=== PATIENT | male | born 1945 | race Caucasian/White ===

== ENCOUNTER 2018-01-31 06:58 | Observation (INO) | payer MEDICARE, OTHER, SELFPAY ==
[2018-01-17 15:25] VITALS: BP 133/75; PULSE 60; RESP 17; TEMP 36.9; O2SAT 97; BMI 34.7
--- NOTE | 2018-01-17 15:45 | SDCEKG_ITS ---
Test Reason : Blood Pressure : / mmHG Vent. Rate : 054 BPM Atrial Rate : 054 BPM P-R Int : 146 ms QRS Dur : 092 ms QT Int : 430 ms P-R-T Axes : 036 -29 005 degrees QTc Int : 407 ms Sinus bradycardia Leftward axis Poor R wave progression Confirmed by LAYNE KIMBROUGH, GIO ([id number]), online content editor ANGELIC DAMON ([id number] on 01/18/2018 10:33:04 AM Referred By: Ethan Zhang Confirmed By:GIO TILLMAN MD
[2018-01-17 16:15] LABS: Absolute Lymphocyte Count 1.55 X10^3/ul (0.83-4.51); Absolute Neutrophil Count 7.4 X10^3/uL (2.0-7.7); Basophil# 0.02 X10^3/uL; Basophil% 0.2 % (0-1); Eosinophil# 0.31 X10^3/uL; Hematocrit 44.6 % (40-54); Hemoglobin 14.9 g/dl (13.0-16.5); Lymphocyte # 1.55 X10^3/ul (4.0); Lymphocyte % 15.1 % (19-41); Mean Corp Hgb Conc 33.4 g/gl (32-36); Mean Corpuscular Hgb 31.1 pg (27.0-32.0); Mean Corpuscular Volume 93.1 fL (80-94); Monocyte# 0.87 X10^3/uL; Monocyte% 8.5 % (0-10); Neutrophil # 7.41 X10^3/uL (2.7-7.7); Neutrophil % 72.4 % (47-70); POSITIVE COUNT NO; POSITIVE DIFFERENTIAL NO; POSITIVE MORPHOLOGY NO; Platelet Count 184 K/mm3 (150-450); RBC Distribution Width CV 13.4 % (11.6-14.6); RBC Distribution Width SD 44.4 fl (35.1-43.9); Red Blood Count 4.79 M/mm3 (4.6-6.2); White Blood Count 10.2 K/mm3 (4.4-11.0)
[2018-01-17 16:33] LABS: Anion Gap 8 (5-15); BUN 29 mg/dL (7-18); Chloride 107 mmol/L (98-107); Creatinine, Serum 1.21 mg/dL (0.70-1.30); EST Glomerular Filtration Rate 62 mL/min (>60); Est Glom Filt Rate - Afr Amer 76 mL/min (>60); Estimated Creatinine Clearance 43.76 ml/min; Glucose 88 mg/dL (74-106); Potassium 4.5 mmol/L (3.5-5.1); Sodium Level 141 mmol/L (136-145)
--- NOTE | 2018-01-17 21:34 | HP.PCM_ITS ---
History and Physical DATE OF SURGERY: 01/31/2018 SCHEDULED PROCEDURE: Right Total Knee Arthroplasty HISTORY OF PRESENT ILLNESS: This is a 72-year-old male whose been having ongoing pain in the right knee for approximately 3-4 years. Patient denies any trauma or injury. He states his pain can reach as high as a 7/10. His pain normally is around a 3/10 on average. He does feel over the past 1 year the pain has gradually progressed and is getting worse. Patient states his pain is intermittent, aching. He complains of stiffness in the knee. He has increased pain going up and down stairs and walking. Pain is slightly reduced with rest. Patient states he has difficult time with activities of daily living including getting dressed and putting on his pants, running, jogging, walking longer distances. Patient feels unsafe getting up on a ladder due to his pain. Patient has tried conservative measures consisting of rest, ice, elevation, and corticosteroid injection with minimal relief. Patient has tried heat with no relief in symptoms. Patient has been through formal physical therapy and home exercises with minimal relief. Patient has also undergone stem cell treatment. Patient has had a previous right knee arthroscopy with stem cell injection in June 2017 in [place]. Patient has tried oral medications consisting of Tylenol, Celebrex which has been temporarily helpful. Patient denies any recent chest pain, shortness of breath, fevers chills, or recent infections. Patient has medical history pertinent for asthma. After failing conservative measures and discussing all treatment options with Dr. Ethan Zhang, the patient would like to proceed with a right total knee arthroplasty. REVIEW OF SYSTEMS: ROS: Const: Denies anorexia, change in appetite, fever, hard of hearing, vision problems and weight change. CV: Denies chest pain, heart murmur, irregular heartbeat and peripheral vascular disease. Resp: Reports asthma and wheezing, but denies cough, pneumonia, sleep apnea, SOB and tuberculosis. GI: Reports heartburn, but denies constipation, diarrhea, difficulty swallowing, nausea, bloody stools and vomiting. : Urinary: denies incontinence. Musculo: Reports weakness, but denies leg swelling, limp and trouble walking. Skin: Denies Raynaud's, history of shingles and tattoo. Neuro: Denies ambulatory dysfunction, dizziness, numbness/tingling and tremor. Psych: Denies anxiety, depression, insomnia, mental illness and stress. Anuj/Lymph: Denies anemia, bleeding/bruising tendency and past transfusion. Reviewed, no changes. PAST MEDICAL HISTORY: Advance Care Plan: Other Directive, POA Effective Date: 07/30/2014 Other Directive, LIVING WILL Effective Date: 07/30/2014 PMH: Medical Problems: Arthritis, Asthma, Kidney Stones Cancer - SKIN Accidents: None Surgical Hx: LT Rotator Cuff - (2003) Scalp - (1979) REMOVED MELONOMA Knee Replacement LT - (08/06/2014) [facility] LT THR - (07/10/2015) [facility] @ [facility] RT Knee Arthroscopy W/Stem Cell Injection - (06/2017) [place] Anesthesia Complications: Nausea Assistive Devices: Glasses Reviewed and updated. SOCIAL HISTORY: SH: Marital: .Occupation: Retired.Work Status: Retired.Hand Dominance: Right- handed. Personal Habits: Cigarette Use: Never Smoked Cigarettes.Alcohol: Denies use.Drug Use: Denies Use.Enjoy Exercising: Daily. Reviewed, no changes. VITALS: Ht: 63.5 Wt: 198lb Wt k.813 BMI: 34.5 BP: 108/60 Pulse: 80 Resp: 16 T: 97.7 T: 36.5C ALLERGIES: Theodur Codeine - elevates prostate levels, Per Dr Calixto no Tylenol #3 MEDICATIONS: Centrum Silver 1 tab PO daily, Avodart 0.5 mg 1 by mouth every day, Aspirin 81 mg daily, Alfuzosin HCL ER 10 mg 1 tab PO daily, Tylenol Extra Strength 500 mg as needed, Magnesium 300 mg one PO daily, Potassium 75 mg one PO daily, [place] 3 1000 mg 1po qday, Celebrex 200 mg 1po bid, Glucosamine Chondroitin 1500 Complex Maximum Strength 1500 Com 1po qday PRE-OP EXAM: General appearance:NORMAL Other: Eyes: Conjunctivae and lids: NORMAL Pupils: ERR Ears, Nose, Mouth, and Throat: NORMAL Other: Inspection of lips, teeth and gums: NORMAL Other: Neck: Examination of neck: no masses noted. Respiratory: Assessment of respiratory effort: NORMAL Other: Auscultation of lungs: clear to auscultation no wheezes, rhonchi or rales. Cardiovascular: Auscultation of heart: regular rate and rhythm, no murmurs, gallops or rubs. Exam of carotid arteries: NORMAL Other: Gastrointestinal: Exam of abdomen: soft, nontender, nondistended bowel sounds present. PHYSICAL EXAMINATION: Patient walks with an antalgic gait. Right knee is cool to touch without erythema. Patient does have trace effusion. Patient has tenderness to palpation along the medial aspect of the right knee. There is minimal pain along the lateral knee. Range of motion: 0 of extension to 130 of flexion with crepitus. Sensation intact to light touch. Neurovascularly intact. IMAGING STUDIES: Previous x-rays of the right knee reveal severe medial and patellofemoral osteoarthritis as well as moderate lateral osteoarthritis. IMPRESSION: 1. Severe right knee osteoarthritis 2. Asthma 3. History of kidney stones 4. History of skin cancer: Melanoma on the scalp 1980 PLAN: Dr. Ethan Zhang did discuss and review with the patient all treatment options including surgical versus nonsurgical options. Patient does wish to proceed with the above-stated procedure. Potential risks, benefits, and complications of the procedure were discussed in detail including but not limited to , infection, nerve and blood vessel damage, persistent pain, numbness, tingling, paresthesias, blood clot, pulmonary embolism, and requirement for possible further surgery. The patient expressed full understanding and has no further questions for the doctor. Patient does agree to proceed with the above-stated procedure and has signed the surgery consent form. Patient will undergo preoperative lab work and EKG. This dictation was created using voice recognition software. Phonetic and/or grammatical errors may exist.. ___ I have re-examined the patient. There are no clinical changes since date of exam. ___ See progress notes for changes. ___ Dictated on admission Date: Time: Signature:
--- NOTE | 2018-01-27 10:50 | CASEMGMT ---
Call placed to patient's home phone, spoke with as patient was unavailable to talk. Per , patient plans to return home with assistance from and daughter. Has outpatient physical therapy set up at [facility], and daughter will assist with transportation. Patient has a walker, grab bars. Does not have a shower seat but has a small bench built into shower that patient can sit on. There is a bedroom and bathroom on the 1st level of the home. There are 1-2 steps into the home. Informed that RN-CM will likely follow up after surgery to ensure no further discharge needs. Marguerite Cade LPN Clinical Support
[2018-01-31] VITALS (10 sets, daily range): BP systolic 112–173; BP diastolic 62–90; PULSE 52–61; RESP 14–18; TEMP 35.9–37; O2SAT 95–100; BMI 34.7; BMI 32.3
--- NOTE | 2018-01-31 | KNEE_PTH ---
PATIENT: DEBBIE DENG LOC: MS3 U#:[id number] AGE/SX: 72/M ROOM: [facility]306 RE01/31/[address]: Dr. Ethan Zhang DO : 1945 BED: 1 DIS: 02/01/2018 SPEC #: [id number] RECD: 01/31/18 14:37 STATUS: ANKIT REQ #: [id number] BROWN: 01/31/18 00:[address]: Ethan Zhang DEPT: SURGICAL PATHOLOGY RECD BY: Rosales Ugalde ENTERED: 01/31/18 14:37 SP TYPE: TOTAL KNEE OTHR DR: Dr. Loki Oneal MD Tissues: Knee, NOS Procedures: Decalcification bone/plaque Surgery Specimen Level IV HEADER OPERATION: Total knee replacement PRE-OP DIAGNOSIS: Osteoarthritis, right knee TISSUE SUBMITTED: Bone and soft tissue MICROSCOPIC DIAGNOSIS Bone and soft tissue fragment, total knee resection: Severe degenerative joint disease. AM:katrin 02/03/18 MICROSCOPIC DESCRIPTION Slides are reviewed. GROSS DESCRIPTION Received is one container designated bone and soft tissue knee. The specimen consists of multiple fragments of anderson-yellow bone measuring in aggregate 9 x 10 x 3.5 cm. Also in the specimen container are multiple fragments of yellow-white soft tissue measuring in aggregate 9 x 3 cm. A number of bony fragments contain articular surfaces consistent with tibial plateau and femoral condyle and displaying prominent osteophyte formation, eburnation, and bone erosion. Assembly Supervisor sections are submitted in two cassettes as follows: 1 - soft tissue, 2 - bone after decalcification. / SJ:sp 01/31/18 TC: 5 CPT: 98779, 43928
[2018-01-31] MEDS: Celecoxib 200 MG Capsule 400 MG PO (07:54)
[2018-01-31] MEDS: Acetaminophen 500 MG Tablet 1000 MG PO (07:54)
[2018-01-31] MEDS: Cefazolin 2 GM in 0.9% Normal Saline 100 ML IV (08:50)
--- NOTE | 2018-01-31 10:17 | PCM.IMDPSTOP ---
Immediate Post-Op Note Date of Procedure: 01/31/18 Primary Surgeon/Physician: Ethan Zhang knife machine operator: Edgar Daniel Pre-Operative Diagnosis: OA right knee Post-Operative Diagnosis: same Surgery/Procedure Performed:: Right TKR Description of Surgical Findings:: see note Estimated Blood Loss: 50 cc Specimen's removed: bone Type of Anesthesia:: Spinal ASA Class: ASA2 Mod Systematic Disease - Admit VTE Documentation VTE Present on Admission: No VTE Mechan Device Prophylaxis: SCD's, Thigh High ANNETTE Hose VTE Pharm Prophylaxis ordered?: Yes
--- NOTE | 2018-01-31 10:19 | PCM.OP.BLANK ---
Operative Report Date of Procedure: 01/31/18 Primary Surgeon/Physician: Ethan Zhang bleach mixer: Edgar Daniel PA-C bleach mixer: Pre-Operative Diagnosis: OA right knee Post-Operative Diagnosis: same Surgery/Procedure Performed: Right TKR Estimated Blood Loss: 50 cc Specimen's Removed: bone Type of Anesthesia: spinal ASA Class: 2 Implants: [Shanna Triathlon size 4 femur, size 4 tibia, size 29 patella, 11 mm polyethylene tibial spacer (all components cemented) ] Indications: Patient has severe end-stage osteoarthritis diagnosed via x-rays in the knee. They have failed all forms of conservative measures including activity modification, injections, anti-inflammatories, use of assistive device. The patient has pain that affects on a daily basis and prevents him from doing things that they enjoyed. They have elected to undergo the above procedure. The risks of the procedure were discussed at length and their questions were answered. Procedure Description: The patient was greeted in the preoperative area. The [right ] knee was then marked with a surgical marker. Patient was then taken to or Suite 5. They were administered a dose of antibiotics as well as tranexamic acid. Once adequate anesthesia was obtained and airway was secured to placed in supine position on the operating room table. A well-padded tourniquet was placed on the affected extremity. Leg was then prepped and draped in the usual sterile fashion from the knee down. Ioban was used on the skin. Surgical timeout was then performed and confirmed with all present. Six-inch Esmarch was used to examine the limb and tourniquet was then inflated to 250 mmHg. A longitudinal incision was then planned and carried out in the anterior aspect of the knee. The dissection was then carried the length of the incision the extensor mechanism was identified. Standard medial parapatellar arthrotomy was then performed revealing severe eburnation of bone and periarticular osteophytes. There is complete loss of cartilage especially in the medial compartment with varus alignment. Anterior fat pad was removed for visualization purposes and the anterior medial aspect of the tibia was skeletonized for exposure to the knee. The knee was then flexed the patella was inverted. Opening reamer was then used in the femur approximately 1 cm anterior to the attachment of the PCL. The intramedullary valgus wand was then placed in the femur set at 5? of valgus. The distal femoral cutting jig was then applied to the femur with anticipated resection of approximately 8 mm. This was then made with a oscillating saw. The sizing guide was then placed referencing off the posterior condyles and also reference off the epicondylar axis. This was measured and the appropriate size 4-in-1 cutting jig was then applied to the distal femur. Anterior posterior cuts were made followed by the anterior and posterior chamfer cuts. These bony pieces and fragments were removed and placed on the back table. Posterior retractor was then utilized and the tibia was subluxed anteriorly. Extramedullary tibial alignment jig was then applied to the tibia referencing off the medial one third of the tibial tubercle the anterior tibial spine the middle aspect of the tibiotalar joint. Also reference off patient's [place] slope. The tibial cutting jig was then pinned with anticipated resection of 2 mm off of the deficient medial tibial condyle. This cut was made with the oscillating saw. Once this was complete a laminar mink rancher was utilized in both medial lateral meniscus were removed and a posterior capsular osteophytes were also removed. Posterior capsule release was performed in the posterior capsule as well as the geniculate arteries are treated with the aqua [place]. The tibia was incised and the appropriate sized tibial tray was then pinned. The femoral box cutting jig was then applied to the femur and the box was prepared removing a portion of the intercondylar notch. The femoral trial was then placed and the knee was trialed. Full flexion-extension were easily achieved. The knee seemed to balance quite nicely. Any remaining osteophytes were removed at this time. Once this was complete the patella was everted and the Shayla patella reaming device was then utilized the patella was then placed in the appropriate jig and reamer was then used to remove approximately 9 mm of the undersurface of the patella. A soft tissue remaining was in the way was removed and patella trial was then placed listed maintain excellent tracking using the no thumbs technique. The tibial tray at this point was punched to accommodate the fins of the final implant. At this point cement was mixed on the back table. The trial components were removed and the knee was copiously irrigated. Did use a cocktail of injection for postoperative pain control. The final components were then cemented in the standard fashion and excess cement was removed with cement removal tools and patellar clamp is placed in the patella. As the cement had cured in full extension tourniquet was deflated and hemostasis was perfect with Bovie cautery as well as the aqua Manus. Needle is once again trialed with different size polyethylenes to ensure the full range of motion was achieved as well as excellent balancing ligamentously was achieved. At this point the knee was copiously irrigated. Final implant was then inserted locking mechanism was engaged and confirmed to be locked. The arthrotomy was then closed with #1 Vicryl aggravate type fashion interrupted. Subcutaneous tissue was closed with 0 Vicryl and surgical ana were placed in the skin. A occlusive silver impregnated dressing was then applied followed by well-padded sterile dressing secured with an George wrap. The patient was taken to the PACU in stable condition. No complications known at this time. Postoperatively we will maintain standard total knee postoperative protocol. The use of the physician sales assistant was integral during this procedure. They assisted with positioning placement of the tourniquet retracting closure and placement of the dressing. The procedure would have been much more difficult without their expertise and assistance
--- NOTE | 2018-01-31 10:23 | OP.PCM_ITS ---
Operative Report Date of Procedure: 01/31/18 Primary Surgeon/Physician: Ethan Zhang rear load truck driver: Edgar Daniel PA-C rear load truck driver: Pre-Operative Diagnosis: OA right knee Post-Operative Diagnosis: same Surgery/Procedure Performed: Right TKR Estimated Blood Loss: 50 cc Specimen's Removed: bone Type of Anesthesia: spinal ASA Class: 2 Implants: [Shanna Triathlon size 4 femur, size 4 tibia, size 29 patella, 11 mm polyethylene tibial spacer (all components cemented) ] Indications: Patient has severe end-stage osteoarthritis diagnosed via x-rays in the knee. They have failed all forms of conservative measures including activity modification, injections, anti-inflammatories, use of assistive device. The patient has pain that affects on a daily basis and prevents him from doing things that they enjoyed. They have elected to undergo the above procedure. The risks of the procedure were discussed at length and their questions were answered. Procedure Description: The patient was greeted in the preoperative area. The [right ] knee was then marked with a surgical marker. Patient was then taken to or Suite 5. They were administered a dose of antibiotics as well as tranexamic acid. Once adequate anesthesia was obtained and airway was secured to placed in supine position on the operating room table. A well-padded tourniquet was placed on the affected extremity. Leg was then prepped and draped in the usual sterile fashion from the knee down. Ioban was used on the skin. Surgical timeout was then performed and confirmed with all present. Six-inch Esmarch was used to examine the limb and tourniquet was then inflated to 250 mmHg. A longitudinal incision was then planned and carried out in the anterior aspect of the knee. The dissection was then carried the length of the incision the extensor mechanism was identified. Standard medial parapatellar arthrotomy was then performed revealing severe eburnation of bone and periarticular osteophytes. There is complete loss of cartilage especially in the medial compartment with varus alignment. Anterior fat pad was removed for visualization purposes and the anterior medial aspect of the tibia was skeletonized for exposure to the knee. The knee was then flexed the patella was inverted. Opening reamer was then used in the femur approximately 1 cm anterior to the attachment of the PCL. The intramedullary valgus wand was then placed in the femur set at 5? of valgus. The distal femoral cutting jig was then applied to the femur with anticipated resection of approximately 8 mm. This was then made with a oscillating saw. The sizing guide was then placed referencing off the posterior condyles and also reference off the epicondylar axis. This was measured and the appropriate size 4-in-1 cutting jig was then applied to the distal femur. Anterior posterior cuts were made followed by the anterior and posterior chamfer cuts. These bony pieces and fragments were removed and placed on the back table. Posterior retractor was then utilized and the tibia was subluxed anteriorly. Extramedullary tibial alignment jig was then applied to the tibia referencing off the medial one third of the tibial tubercle the anterior tibial spine the middle aspect of the tibiotalar joint. Also reference off patient's [place] slope. The tibial cutting jig was then pinned with anticipated resection of 2 mm off of the deficient medial tibial condyle. This cut was made with the oscillating saw. Once this was complete a laminar service person was utilized in both medial lateral meniscus were removed and a posterior capsular osteophytes were also removed. Posterior capsule release was performed in the posterior capsule as well as the geniculate arteries are treated with the aqua [place]. The tibia was incised and the appropriate sized tibial tray was then pinned. The femoral box cutting jig was then applied to the femur and the box was prepared removing a portion of the intercondylar notch. The femoral trial was then placed and the knee was trialed. Full flexion-extension were easily achieved. The knee seemed to balance quite nicely. Any remaining osteophytes were removed at this time. Once this was complete the patella was everted and the Shayla patella reaming device was then utilized the patella was then placed in the appropriate jig and reamer was then used to remove approximately 9 mm of the undersurface of the patella. A soft tissue remaining was in the way was removed and patella trial was then placed listed maintain excellent tracking using the no thumbs technique. The tibial tray at this point was punched to accommodate the fins of the final implant. At this point cement was mixed on the back table. The trial components were removed and the knee was copiously irrigated. Did use a cocktail of injection for postoperative pain control. The final components were then cemented in the standard fashion and excess cement was removed with cement removal tools and patellar clamp is placed in the patella. As the cement had cured in full extension tourniquet was deflated and hemostasis was perfect with Bovie cautery as well as the aqua Manus. Needle is once again trialed with different size polyethylenes to ensure the full range of motion was achieved as well as excellent balancing ligamentously was achieved. At this point the knee was copiously irrigated. Final implant was then inserted locking mechanism was engaged and confirmed to be locked. The arthrotomy was then closed with #1 Vicryl aggravate type fashion interrupted. Subcutaneous tissue was closed with 0 Vicryl and surgical ana were placed in the skin. A occlusive silver impregnated dressing was then applied followed by well-padded sterile dressing secured with an George wrap. The patient was taken to the PACU in stable condition. No complications known at this time. Postoperatively we will maintain standard total knee postoperative protocol. The use of the physician licensed physical therapy assistant was integral during this procedure. They assisted with positioning placement of the tourniquet retracting closure and placement of the dressing. The procedure would have been much more difficult without their expertise and assistance
[2018-01-31 11:38] LABS: Hematocrit 45.3 % (40-54); Mean Corp Hgb Conc 33.1 g/gl (32-36); Mean Corpuscular Hgb 31.4 pg (27.0-32.0); Mean Corpuscular Volume 94.8 fL (80-94); Mean Platelet Vol. 10.8 fl (6.2-12.0); Platelet Count 193 K/mm3 (150-450); RBC Distribution Width CV 13.5 % (11.6-14.6); RBC Distribution Width SD 46.6 fl (35.1-43.9); Red Blood Count 4.78 M/mm3 (4.6-6.2); White Blood Count 12.7 K/mm3 (4.4-11.0)
[2018-01-31 11:39] LABS: Scan Indicated on CBC? Y/N NO
[2018-01-31] MEDS: Multivitamins,Ther W-Minerals Tablet 1 TABLET PO (14:06)
[2018-01-31] MEDS: Celecoxib 100 MG Capsule PO ×2 (14:06→21:08)
[2018-01-31] MEDS: Finasteride 5 MG Tablet PO (14:07)
[2018-01-31] MEDS: Cefazolin 1 GM/50 ML BAG IV (16:25)
[2018-01-31] MEDS: Tamsulosin HCl 0.4 MG Capsule PO (16:26)
[2018-01-31] MEDS: 0.9% Normal Saline 1,000 ML 125 ML IV (16:29)
[2018-01-31] MEDS: traMADol 50 MG Tablet PO (19:18)
[2018-01-31] MEDS: Aspirin 325 MG Tablet PO (21:08)
[2018-01-31] MEDS: Senna/Docusate Sodium 1 Tablet 2 TABLET PO (21:08)
[2018-01-31] MEDS: DiphenhydrAMINE 25 MG Capsule PO (22:19)
[2018-01-31] MEDS: Acetaminophen 500 MG Tablet PO (22:19)
[2018-01-31] MEDS: 0.9% NaCl Peripheral Flush Adult/Peds IV (22:22)
[2018-02-01] MEDS: Cefazolin 1 GM/50 ML BAG IV (00:30)
[2018-02-01] MEDS: 0.9% NaCl Peripheral Flush Adult/Peds IV ×3 (00:31→12:38)
[2018-02-01 00:34] VITALS: BP 123/68; PULSE 59; RESP 16; TEMP 36.3; O2SAT 94
[2018-02-01] MEDS: traMADol 50 MG Tablet PO (05:39)
[2018-02-01 05:52] LABS: Hematocrit 43.3 % (40-54); Hemoglobin 14.6 g/dl (13.0-16.5); Mean Corp Hgb Conc 33.7 g/gl (32-36); Mean Corpuscular Hgb 31.2 pg (27.0-32.0); Mean Corpuscular Volume 92.5 fL (80-94); Platelet Count 188 K/mm3 (150-450); RBC Distribution Width CV 13.2 % (11.6-14.6); RBC Distribution Width SD 43.7 fl (35.1-43.9); Red Blood Count 4.68 M/mm3 (4.6-6.2); White Blood Count 11.9 K/mm3 (4.4-11.0)
[2018-02-01 05:54] LABS: Scan Indicated on CBC? Y/N NO
[2018-02-01 06:00] VITALS: BP 142/69; PULSE 59; RESP 16; TEMP 35.9; O2SAT 95
[2018-02-01 06:04] LABS: Anion Gap 10 (5-15); BUN 30 mg/dL (7-18); BUN/Creat Ratio 25.2 RATIO (10-20); Calcium,Total 8.5 mg/dL (8.5-10.1); Chloride 106 mmol/L (98-107); Creatinine, Serum 1.19 mg/dL (0.70-1.30); EST Glomerular Filtration Rate 64 mL/min (>60); Est Glom Filt Rate - Afr Amer 77 mL/min (>60); Estimated Creatinine Clearance 49.89 ml/min; Glucose 98 mg/dL (74-106); Potassium 4.1 mmol/L (3.5-5.1); Sodium Level 139 mmol/L (136-145)
[2018-02-01] MEDS: Ketorolac 15 MG/ML Vial IV ×2 (06:38→12:37)
--- NOTE | 2018-02-01 07:52 | PCM.PN.ORT ---
Subjective: Patient sitting at bedside eating breakfast. Pain well managed. No other complaints. Denies chest pain, shortness breath, calf pain, nausea vomiting. Ready for discharge home. Objective: Dressings clean dry intact. Negative signs symptoms of DVT. Vital signs labs within normal limits. Patient is afebrile neurovascular is otherwise intact. - Physical Exam General: Alert, Oriented x3, Cooperative HEENT: PERRLA Oral: Moist Mucosa Neurological: Cranial nerves II-XII grossly intact Psych/Mental Status: Normal Affect, Alert and oriented to time, place, person, mood and affect Vital Signs Temp Pulse Resp BP Pulse Ox 96.7 F L 59 L 16 142/69 H 95 02/01/18 06:00 02/01/18 06:00 02/01/18 06:00 02/01/18 06:00 02/01/18 06:00 Oxygen Delivery Method Room Air Weight: 90.718 kg Body Mass Index (BMI) 32.3 Intake and Output for Last 24 Hours 01/30/18 01/31/18 02/01/18 23:59 23:59 23:59 Intake Total 2016 325 / 325 Balance 2016 325 / 325 Laboratory Tests Past 24 Hrs 01/31/18 02/01/18 02/01/18 11:34 05:38 05:38 WBC 12.7 H 11.9 H RBC 4.78 4.68 Hgb 15.0 14.6 Hct 45.3 43.3 MCV 94.8 H 92.5 MCH 31.4 31.2 MCHC 33.1 33.7 RDW 13.5 13.2 RDW Differential 46.6 H 43.7 Plt Count 193 188 MPV 10.8 11.0 Sodium 139 Potassium 4.1 Chloride 106 Carbon Dioxide 23.0 Anion Gap 10 BUN 30 H Creatinine 1.19 Estim Creat Clear Calc 49.89 Est GFR (MDRD) Af Amer 77 Est GFR (MDRD) Non-Af 64 BUN/Creatinine Ratio 25.2 H Glucose 98 Calcium 8.5 Medical Necessity - Tobacco Use Smoking Status: Never smoker Assessment/Plan All Active Problems SOB (shortness of breath) (Acute) Rib fractures (Acute) Status post right total knee Plan 1. Continue all pain medications as prescribed 2. Continue physical therapy today weight-bear as tolerated with walker 3. Aspirin 3 and 25 mg 1 p.o. every 12 hours for postop DVT prophylaxis times 30 days 4. Encourage incentive spirometry 5. Follow-up as scheduled, see pink sheet 6. Discharge home today after p.m. therapy.
--- NOTE | 2018-02-01 08:01 | DCINST_ITS ---
Discharge Diet: No Restrictions Call your doctor if your incision/area has: Continuous Slow Oozing, Sudden Increased Bleeding, Increased Pain/ Swelling, Increased Redness, Foul Smelling Discharge Call your doctor if you observe: Fever of 101 or Higher, Coldness, Increased Pain - in extremity, Numbness or Tingling, Change in Color, Calf discomfort, Uncontrolled pain Change Dressing in (Days):: 0 - and daily as needed. Remove Dressing in (days):: 8 Cleanse incision/area with: Soap & Water Allergies/Adverse Reactions: Allergies theophylline anhydrous [From Wiliam-Dur] Allergy (Verified 01/31/18 07:31) Other oxycodone HCl [From Percocet] Adverse Reaction (Verified 01/31/18 07:31) Nausea Medications to take at Discharge Alfuzosin HCl [Alfuzosin HCl ER] 10 mg PO DAILY 07/30/14 Multivit-Min/FA/Lycopene/Lut [Centrum Silver Tablet] 1 each PO DAILY 07/30/14 Glucosam/Nish-Msm1/C/Thai/Bosw [Osteo Bi-Flex Caplet] 1 each PO DAILY 09/11/16 Krill/Keiser-3/Dha/Epa/Lipids [Krill Oil 300 mg Softgel] 1 each PO DAILY 09/11/16 Magnesium Oxide [Magnesium] 400 mg PO DAILY 09/11/16 Potassium 550 mg PO DAILY 09/11/16 Celecoxib [Celebrex] 100 mg PO BID 01/17/18 Dutasteride [Avodart] 5 mg PO DAILY 01/17/18 Acetaminophen [Tylenol] 1,000 mg PO Q8 #90 tab 02/01/18 Aspirin 325 mg PO BID #60 tab 02/01/18 traMADol [Ultram] 50 - 100 mg PO Q6H PRN PRN 7 Days #90 tab 02/01/18 The following prescriptions were given: traMADol [Ultram] 50 - 100 mg PO Q6H PRN PRN 7 Days #90 tab PRN Reason: Mod-Severe Pain (4-12/29) Acetaminophen [Tylenol] 1,000 mg PO Q8 #90 tab Aspirin 325 mg PO BID #60 tab Primary Care Physician: Loki Oneal MD [Primary Care Provider] - Test Results: Test results from this visit will be discussed in further detail at your follow- up appointment, if applicable. Please Follow Up With: Ethan Zhang, DO When: see pink sheet
[2018-02-01] MEDS: Aspirin 325 MG Tablet PO (09:56)
[2018-02-01] MEDS: traMADol 50 MG Tablet 100 MG PO (09:57)
[2018-02-01] MEDS: Finasteride 5 MG Tablet PO (09:58)
[2018-02-01] MEDS: Celecoxib 100 MG Capsule PO (09:58)
[2018-02-01] MEDS: Tamsulosin HCl 0.4 MG Capsule PO (09:58)
[2018-02-01] MEDS: Multivitamins,Ther W-Minerals Tablet 1 TABLET PO (09:58)
[2018-02-01] MEDS: Senna/Docusate Sodium 1 Tablet 2 TABLET PO (09:59)
[2018-02-01 10:33] VITALS: BP 168/86; PULSE 65; RESP 18; TEMP 36.7; O2SAT 98
--- NOTE | 2018-02-01 11:45 | CASEMGMT ---
VITO DONOVAN Face to Face with patient for initial transition planning/care coordination assessment. RN ZION introduced self and role at [facility]. Patient lying in bed, alert and oriented. Patient willing to participate in assessment and is able to answer all questions appropriately. Care providers, pharmacy, and demographics verified. Patient wishes to discharge home with outpatient therapy with [facility]. Patient states he has no further needs or concerns at this time. CM to follow for discharge planning needs that may arise. PCP: Jm Specialists: None Preferred Pharmacy: [facility] Insurance: [facility] Prescription Benefit: yes Living Will/HPOA: Yes, Rena Alonzo HPOA LNOK: Living Arrangements: Patient lives in 1 story home. Transportation: DME/HHC: Raised toilet seat, cane, tub bench, crutches, grab bars, walker Disposition Plan: Patient to discharge home with outpatient therapy, family support, and follow-up plans in place. Silvana MENDEZ, RN, CM
[2018-02-01] MEDS: Acetaminophen 500 MG Tablet 1000 MG PO (13:09)
== END 2018-02-01 15:13 | disposition home or self-care (01) ==
LOC: MS3 02-01 08:35 → ACINP 02-01 08:36
PROVIDERS: Admitting Provider Orthopaedic Surgery; Family Provider Family Medicine; PCP Family Medicine; Referring Provider Orthopaedic Surgery; Visit Provider Orthopaedic Surgery
PROC: (CPT 27447; principal; 2018-01-31 08:35)
DX: M17.11 Unilateral primary osteoarthritis, right knee (principal); M19.90 Unspecified osteoarthritis, unspecified site; J45.909 Unspecified asthma, uncomplicated; Z79.899 Other long term (current) drug therapy; Z79.82 Long term (current) use of aspirin; Z87.442 Personal history of urinary calculi; Z85.820 Personal history of malignant melanoma of skin; K21.9 Gastro-esophageal reflux disease without esophagitis
CPT/HCPCS: 27447; 64447; 36415; 80048; 85025; 85027; 87077; 87081; 88305; 88311; 93005; 96361; 96365; 96366; 96375; 96376; 97110; 97162; 97165; 97530; 99218; C1776; J7030; J7120; A4216; G0378; G0379; G8978; G8979; G8987; G8988

== ENCOUNTER → 2018-03-17 18:43 | Outpatient (CLI) | payer MEDICARE, OTHER, SELFPAY | PROVIDERS: Family Provider Family Medicine; PCP Family Medicine; Referring Provider Family Medicine; Visit Provider Family Medicine | DX: L02.425 Furuncle of right lower limb (principal) | CPT/HCPCS: 87070; 87077; 87186; 87205 ==

== ENCOUNTER → 2018-04-20 11:28 | Outpatient (CLI) | payer MEDICARE, OTHER, SELFPAY ==
[2018-01-31 12:26] VITALS: BMI 32.3
[2018-04-20 12:26] LABS: Hematocrit 46.2 % (40-54); Hemoglobin 15.2 g/dl (13.0-16.5); Mean Corp Hgb Conc 32.9 g/gl (32-36); Mean Corpuscular Hgb 30.5 pg (27.0-32.0); Mean Corpuscular Volume 92.8 fL (80-94); Mean Platelet Vol. 11.4 fl (6.2-12.0); Platelet Count 242 K/mm3 (150-450); RBC Distribution Width SD 46.1 fl (35.1-43.9); Red Blood Count 4.98 M/mm3 (4.6-6.2); White Blood Count 9.4 K/mm3 (4.4-11.0)
[2018-04-20 12:29] LABS: Scan Indicated on CBC? Y/N NO
[2018-04-20 12:52] LABS: Vitamin B12 713 pg/mL (211-911)
[2018-04-20 12:58] LABS: ALB/GLOB Ratio 1.1 RATIO (0.9-2.4); AST(SGOT) 20 U/L (15-37); Alanine Aminotransfer ALT/SGPT 22 U/L (16-61); Alkaline Phosphatase 87 U/L (45-117); Anion Gap 10 (5-15); BUN 21 mg/dL (7-18); BUN/Creat Ratio 20.4 RATIO (10-20); Calcium,Total 9.4 mg/dL (8.5-10.1); Chloride 107 mmol/L (98-107); Creatinine, Serum 1.03 mg/dL (0.70-1.30); EST Glomerular Filtration Rate 75 mL/min (>60); Est Glom Filt Rate - Afr Amer 91 mL/min (>60); Globulin 3.6 g/dL (2.2-4.2); Glucose 81 mg/dL (74-106); Potassium 4.3 mmol/L (3.5-5.1); Protein, Total 7.6 g/dL (6.4-8.2); Sodium Level 143 mmol/L (136-145); Thyroid Stim Hormone (TSH) 1.01 uIU/mL (0.358-3.74)
[2018-04-21 15:13] LABS: ANTINUCLEAR ANTIBODIES DIRECT Positive (Negative)
[2018-04-22 07:07] LABS: Ceruloplasmin 24.5 mg/dL (16.0-31.0)
[2018-04-22 11:07] LABS: Copper, Serum or Plasma 112 ug/dL (72-166)
== END ==
PROVIDERS: Family Provider Family Medicine; PCP Family Medicine; Referring Provider Psychiatry & Neurology Neurology; Visit Provider Psychiatry & Neurology Neurology
DX: R25.1 Tremor, unspecified (principal)
CPT/HCPCS: 36415; 80053; 82390; 82525; 82607; 84443; 85027; 86038

== ENCOUNTER → 2018-09-26 10:59 | Outpatient (CLI) | payer MEDICARE, OTHER, SELFPAY ==
[2018-01-31 12:26] VITALS: BMI 32.3
[2018-09-26 12:08] LABS: EXAGEN MAILED SPECIMEN
[2018-09-26 13:48] LABS: Absolute Lymphocyte Count 0.98 X10^3/ul (0.83-4.51); Absolute Neutrophil Count 7.7 X10^3/uL (2.0-7.7); Basophil# 0.02 X10^3/uL; Basophil% 0.2 % (0-1); Eosinophil# 0.47 X10^3/uL; Eosinophils% 4.7 % (0-5); Hematocrit 46.2 % (40-54); Hemoglobin 15.6 g/dl (13.0-16.5); Lymphocyte # 0.98 X10^3/ul (4.0); Lymphocyte % 9.7 % (19-41); Mean Corp Hgb Conc 33.8 g/gl (32-36); Mean Corpuscular Hgb 31.1 pg (27.0-32.0); Mean Corpuscular Volume 92.2 fL (80-94); Mean Platelet Vol. 11.2 fl (6.2-12.0); Monocyte# 0.83 X10^3/uL; Monocyte% 8.2 % (0-10); Neutrophil # 7.69 X10^3/uL (2.7-7.7); Neutrophil % 76.4 % (47-70); Platelet Count 191 K/mm3 (150-450); RBC Distribution Width CV 13.7 % (11.6-14.6); RBC Distribution Width SD 44.8 fl (35.1-43.9); Red Blood Count 5.01 M/mm3 (4.6-6.2); White Blood Count 10.1 K/mm3 (4.4-11.0)
[2018-09-26 13:51] LABS: POSITIVE COUNT NO; POSITIVE DIFFERENTIAL NO; POSITIVE MORPHOLOGY NO
[2018-09-26 13:59] LABS: Protein:Creat Ratio 113 mg/g CRE (0-200)
[2018-09-26 14:04] LABS: AST(SGOT) 23 U/L (15-37); Alanine Aminotransfer ALT/SGPT 18 U/L (16-61); Albumin, Serum 3.9 g/dL (3.2-5.0); Alkaline Phosphatase 115 U/L (45-117); Anion Gap 7 (5-15); BUN 22 mg/dL (7-18); BUN/Creat Ratio 16.8 RATIO (10-20); Calcium,Total 9.2 mg/dL (8.5-10.1); Chloride 107 mmol/L (98-107); Creatinine, Serum 1.31 mg/dL (0.70-1.30); EST Glomerular Filtration Rate 57 mL/min (>60); Est Glom Filt Rate - Afr Amer 69 mL/min (>60); Globulin 3.8 g/dL (2.2-4.2); Glucose 72 mg/dL (74-106); Potassium 4.2 mmol/L (3.5-5.1); Protein, Total 7.7 g/dL (6.4-8.2); Sodium Level 143 mmol/L (136-145)
[2018-09-26 14:17] LABS: Color, Urine Yellow (Yellow); Glucose, Dipstick Normal (Normal); Ketone-Dipstick Negative (Negative); Leukocyte Esterase-Dipstick Negative /ul (Negative); Nitrite-Dipstick Negative (Negative); Occult Blood-Urine Negative /ul (Negative); Protein-Dipstick 15 mg/dl (Negative); Urine Bilirubin Dipstick Negative (Negative); Urine Clarity Clear (Clear); Urine Urobilinogen Normal (Normal)
== END ==
PROVIDERS: Family Provider Family Medicine; PCP Family Medicine; Referring Provider Internal Medicine Rheumatology; Visit Provider Internal Medicine Rheumatology
DX: R76.8 Other specified abnormal immunological findings in serum (principal); M17.0 Bilateral primary osteoarthritis of knee; M47.897 Other spondylosis, lumbosacral region; M16.0 Bilateral primary osteoarthritis of hip; G20 Parkinson's disease; N20.0 Calculus of kidney; N40.1 Benign prostatic hyperplasia with lower urinary tract symptoms; J45.909 Unspecified asthma, uncomplicated
CPT/HCPCS: 36415; 80053; 81002; 82570; 84156; 85025

== ENCOUNTER → 2018-11-11 09:15 | Outpatient (CLI) | payer MEDICARE, OTHER, SELFPAY ==
--- NOTE | 2018-11-11 09:18 | RAD_ITS ---
CLINICAL HISTORY: Male, 73 years old. Dysphagia for a few months PROCEDURE: Esophagram Technique: Multiple fluoroscopic assessment performed after administration of double contrast medium, followed by single contrast medium with images acquired along the esophagus. Findings: Single and also double contrast study of the esophagus demonstrate that there is unremarkable mucosal pattern of the esophagus, without evidence of intraluminal lesion or stricture. Overall unremarkable peristalsis through the esophagus. There is no evidence of Zenker's diverticulum proximally. There is mild gastroesophageal reflux to distal one third of esophagus. Mild to moderate sliding hiatal hernia is noted. Evaluation with a 0.5 inch barium pill demonstrates unremarkable peristalsis through the esophagus, with unremarkable emptying into the stomach without delay. RAD/Esophagus Only IMPRESSION: Unremarkable mucosal pattern of the esophagus. No evidence of focal stricture or narrowing. No evidence of Zenker's diverticulum. Mild to moderate sliding hiatal hernia is noted. Mild reflux to distal one third of esophagus. Normal peristalsis of a 0.5 inch tablet through the esophagus and the gastroesophageal junction. Electronically Signed: Romaine Espinoza MD at 14:27 EDT Tel [phone], Service support ,
== END ==
PROVIDERS: Family Provider Family Medicine; PCP Family Medicine; Referring Provider Family Medicine; Visit Provider Family Medicine
DX: R13.10 Dysphagia, unspecified (principal)
CPT/HCPCS: 74220

== ENCOUNTER → 2018-11-28 08:08 | Outpatient (CLI) | payer MEDICARE, OTHER, SELFPAY ==
--- NOTE | 2018-11-28 09:32 | RAD_ITS ---
STUDY: AIR CONTRAST UPPER GI SERIES AND SMALL BOWEL FOLLOW-THROUGH. REASON FOR EXAM: Male, 73 years old. Chest pressure. Acid reflux disease. FLUOROSCOPY TIME (if supplied): (1:47) minutes/seconds TECHNIQUE: The patient ingested barium. Multiple images of the esophagus, stomach and duodenum were obtained. Following this, a small bowel follow-through examination was performed. COMPARISON: Comparison is made with prior esophageal examination date November 11, 2018. FINDINGS: Small hiatal hernia without gastroesophageal reflux. The stomach and duodenum are unremarkable. There is no evidence of ulceration. No mass lesion is seen. A small bowel follow-through examination was obtained. The bowel transit is normal. There is no evidence of intrinsic or extrinsic small bowel disease. The terminal ileum is unremarkable. Left hip replacement. RAD/Upper GI/w Small Bowel IMPRESSION: Small hiatal hernia. Electronically Signed: Agustín Delgado, at 15:42 EDT , Service support ,
== END ==
PROVIDERS: Family Provider Family Medicine; PCP Family Medicine; Referring Provider Family Medicine; Visit Provider Family Medicine
DX: R13.10 Dysphagia, unspecified (principal)
CPT/HCPCS: 74249

== ENCOUNTER → 2020-02-08 10:33 | Outpatient (CLI) | payer MEDICARE, OTHER, SELFPAY ==
[2018-01-31 12:26] VITALS: BMI 32.3
[2020-02-08 12:35] LABS: PSA,Total- Diagnostic 2.38 ng/mL (0.0-4.0)
[2020-02-08 15:46] LABS: Color, Urine Yellow (Yellow); Glucose, Dipstick Normal (Normal); Ketone-Dipstick 5 mg/dl (Negative); Leukocyte Esterase-Dipstick Negative /ul (Negative); Nitrite-Dipstick Negative (Negative); Occult Blood-Urine Negative /ul (Negative); Protein-Dipstick 30 mg/dl (Negative); Urine Bilirubin Dipstick Negative (Negative); Urine Clarity Clear (Clear); Urine Urobilinogen Normal (Normal)
== END ==
PROVIDERS: PCP Family Medicine; Referring Provider Urology; Visit Provider Urology
DX: Z12.5 Encounter for screening for malignant neoplasm of prostate (principal); N40.1 Benign prostatic hyperplasia with lower urinary tract symptoms
CPT/HCPCS: 36415; 81002; 84153

== ENCOUNTER → 2020-04-22 10:15 | Outpatient (CLI) | payer MEDICARE, OTHER, SELFPAY ==
[2018-01-31 12:26] VITALS: BMI 32.3
--- NOTE | 2020-04-22 10:18 | RAD_ITS ---
STUDY: X-RAY CHEST REASON FOR EXAM: Male, 74 years old. Expiratory wheeze and lower posterior crackles TECHNIQUE: PA and lateral views of the chest. COMPARISON: Comparison is made with prior study dated 09/13/2016. FINDINGS: The lungs are clear and expanded. There is no demonstrated pleural abnormality. There is mild cardiac enlargement. Normal mediastinum and mildred. Normal visualized pulmonary arteries. There is atherosclerotic tortuosity of the aortic arch and descending thoracic aorta. There are diffuse degenerative changes of the visualized thoracic spine. Normal visualized ribs, clavicles, and shoulders. There is no demonstrated abnormality of the visualized soft tissue structures of the upper abdomen. RAD/Chest PA and Lateral IMPRESSION: Cardiomegaly. The lungs are clear. Electronically Signed: Agustín Delgado MD at 11:10 EST , Service support ,
== END ==
PROVIDERS: PCP Family Medicine; Referring Provider Family Medicine; Visit Provider Family Medicine
DX: R06.2 Wheezing (principal)
CPT/HCPCS: 71046

== ENCOUNTER 2020-05-23 17:22 | Outpatient (RCR) | payer MEDICARE, OTHER, SELFPAY ==
[2018-01-31 12:26] VITALS: BMI 32.3
[2020-05-23] MEDS: COVID-19 VACC, MRNA(PFIZER)/PF 30 MCG/0.3 ML SYRINGE IM (16:09)
[2020-06-13] MEDS: COVID-19 VACC, MRNA(PFIZER)/PF 30 MCG/0.3 ML SYRINGE IM (15:16)
== END 2020-08-27 23:59 ==
LOC: IMMUN 17:22
PROVIDERS: PCP Family Medicine; Visit Provider Family Medicine
DX: Z23 Encounter for immunization (principal)
CPT/HCPCS: 0001A; 0002A; 91300

== ENCOUNTER → 2020-06-18 09:27 | Outpatient (CLI) | payer MEDICARE, OTHER, SELFPAY ==
[2018-01-31 12:26] VITALS: BMI 32.3
--- NOTE | 2020-06-18 10:52 | RAD_ITS ---
STUDY: X-RAY CHEST REASON FOR EXAM: Male, 74 years old. Wheezing and rattling in chest TECHNIQUE: PA and lateral views of the chest. COMPARISON: Comparison is made with prior study dated 04/22/2020. FINDINGS: The lungs are clear and expanded. There is no demonstrated pleural abnormality. There is mild cardiac enlargement. Calcified right hilar lymph nodes. Normal visualized pulmonary arteries. There is atherosclerotic tortuosity of the aortic arch and descending thoracic aorta. There are diffuse degenerative changes of the visualized thoracic spine. Normal visualized ribs, clavicles, and shoulders. There is no demonstrated abnormality of the visualized soft tissue structures of the upper abdomen. RAD/Chest PA and Lateral IMPRESSION: No acute abnormality is seen. Cardiomegaly. Electronically Signed: Agustín Delgado MD at 10:52 EDT , Service support ,
[2020-06-18 12:10] LABS: Absolute Lymphocyte Count 0.97 X10^3/uL (0.83-4.51); Absolute Neutrophil Count 6.5 X10^3/uL (2.0-7.7); Basophil# 0.06 X10^3/uL; Basophil% 0.7 % (0-1); Eosinophils% 4.6 % (0-5); Hematocrit 48.1 % (40-54); Hemoglobin 15.4 g/dL (13.0-16.5); Lymphocyte # 0.97 X10^3/ul (4.0); Lymphocyte % 11.1 % (19-41); Mean Corpuscular Hgb 29.9 pg (27.0-32.0); Mean Corpuscular Volume 93.4 fL (80-94); Mean Platelet Vol. 11.9 fl (6.2-12.0); Monocyte# 0.72 X10^3/uL; Monocyte% 8.2 % (0-10); NRBC Flagged by Analyzer 0 % (0-5); Neutrophil # 6.46 X10^3/uL (2.7-7.7); Neutrophil % 73.9 % (47-70); Platelet Count 218 K/mm3 (150-450); RBC Distribution Width CV 13.3 % (11.6-14.6); RBC Distribution Width SD 45.5 fl (35.1-43.9); Red Blood Count 5.15 M/mm3 (4.6-6.2); White Blood Count 8.7 K/mm3 (4.4-11.0)
[2020-06-18 12:28] LABS: AST(SGOT) 29 U/L (15-37); Alanine Aminotransfer ALT/SGPT 14 U/L (16-61); Albumin, Serum 3.8 g/dL (3.2-5.0); Alkaline Phosphatase 104 U/L (45-117); Anion Gap 5 (5-15); BUN 28 mg/dL (7-18); BUN/Creat Ratio 19.2 RATIO (10-20); Calcium,Total 9.2 mg/dL (8.5-10.1); Chloride 107 mmol/L (98-107); Creatinine, Serum 1.46 mg/dL (0.70-1.30); EST Glomerular Filtration Rate 50 mL/min (>60); Est Glom Filt Rate - Afr Amer 60 mL/min (>60); Globulin 3.7 g/dL (2.2-4.2); Glucose 82 mg/dL (74-106); Potassium 4.4 mmol/L (3.5-5.1); Protein, Total 7.5 g/dL (6.4-8.2); Sodium Level 141 mmol/L (136-145)
[2020-06-18 12:56] LABS: BNP,B-Type NATRIURETIC PEPTIDE 52.3 pg/mL (0-100)
== END ==
PROVIDERS: PCP Family Medicine; Referring Provider Family Medicine; Visit Provider Family Medicine
DX: R06.2 Wheezing (principal)
CPT/HCPCS: 36415; 71046; 80053; 83880; 85025

== ENCOUNTER → 2020-08-14 09:47 | Outpatient (CLI) | payer MEDICARE, OTHER, SELFPAY ==
[2020-08-14 12:59] LABS: Albumin, Serum 3.9 g/dL (3.2-5.0)
== END ==
PROVIDERS: PCP Family Medicine; Referring Provider Specialist; Visit Provider Specialist
DX: Z01.812 Encounter for preprocedural laboratory examination (principal)
CPT/HCPCS: 36415; 82040

== ENCOUNTER 2021-04-21 18:11 | Outpatient (CLI) | payer MEDICARE, OTHER, SELFPAY | END 2021-04-21 23:59 | disposition short-term general hospital (02) | PROVIDERS: PCP Family Medicine; Referring Provider Family Medicine; Visit Provider Family Medicine | DX: U07.1 COVID-19 (principal) | CPT/HCPCS: 87635; U0003; U0005 ==

== ENCOUNTER → 2022-02-26 | Outpatient (CLI) | payer MEDICARE, OTHER, SELFPAY ==
[2022-02-26 15:29] LABS: PSA,Total- Diagnostic 1.49 ng/mL (0.0-4.0)
== END | disposition home or self-care (01) ==
LOC: LAB 14:11
PROVIDERS: PCP Family Medicine; Referring Provider Urology; Visit Provider Urology
DX: N40.1 Benign prostatic hyperplasia with lower urinary tract symptoms (principal)
CPT/HCPCS: 36415; 84153

== ENCOUNTER → 2022-08-10 | Outpatient (CLI) | payer MEDICARE, OTHER, SELFPAY ==
--- NOTE | 2022-08-10 16:45 | RAD_ITS ---
STUDY: X-RAY CHEST REASON FOR EXAM: Male, 76 years old. Rales. TECHNIQUE: Frontal and lateral views of the chest on 3 images. COMPARISON: June 18, 2020. FINDINGS: Mild hyperinflation unchanged. Calcified mediastinal and hilar lymph nodes, unaltered. Stable cardiomegaly with aortic tortuosity and calcification. Diffuse thoracic spondylosis unchanged. No demonstrated abnormality of the visualized soft tissue structures of the upper abdomen. RAD/Chest PA and Lateral IMPRESSION: Stable chest with no acute or active cardiopulmonary disease. Electronically Signed: Edgar Diaz, at 10:15 EDT ,
[2022-08-10 18:16] LABS: Absolute Lymphocyte Count 1.08 X10^3/uL (0.83-4.51); Absolute Neutrophil Count 6.3 X10^3/uL (2.0-7.7); Basophil# 0.06 X10^3/uL; Basophil% 0.7 % (0-1); Eosinophil# 0.37 X10^3/uL; Eosinophils% 4.3 % (0-5); Hematocrit 44.8 % (40-54); Hemoglobin 14.8 g/dL (13.0-16.5); Lymphocyte # 1.08 X10^3/ul (0.83-4.51); Lymphocyte % 12.5 % (19-41); Mean Corpuscular Hgb 30.8 pg (27.0-32.0); Mean Corpuscular Volume 93.3 fL (80-94); Monocyte# 0.68 X10^3/uL; Monocyte% 7.9 % (0-10); NRBC Flagged by Analyzer 0 % (0-5); Neutrophil # 6.33 X10^3/uL (2.7-7.7); Neutrophil % 73.6 % (47-70); Platelet Count 207 K/mm3 (150-450); RBC Distribution Width CV 13.6 % (11.6-14.6); RBC Distribution Width SD 45.9 fl (35.1-43.9); White Blood Count 8.6 K/mm3 (4.4-11.0)
[2022-08-10 19:00] LABS: BNP,B-Type NATRIURETIC PEPTIDE 92.8 pg/mL (0-100)
[2022-08-10 19:08] LABS: AST(SGOT) 25 U/L (15-37); Alanine Aminotransfer ALT/SGPT 20 U/L (16-61); Albumin, Serum 3.8 g/dL (3.2-5.0); Alkaline Phosphatase 102 U/L (45-117); Anion Gap 7 (5-15); BUN 25 mg/dL (7-18); BUN/Creat Ratio 19.8 RATIO (10-20); CRP, High Sensitivity Cardiac 6.95 mg/L; Calcium,Total 9.1 mg/dL (8.5-10.1); Chloride 108 mmol/L (98-107); Creatinine, Serum 1.26 mg/dL (0.70-1.30); EST Glomerular Filtration Rate 59 mL/min (>60); Est Glom Filt Rate - Afr Amer 71 mL/min (>60); Globulin 3.7 g/dL (2.2-4.2); Glucose 93 mg/dL (74-106); Protein, Total 7.5 g/dL (6.4-8.2); Sodium Level 142 mmol/L (136-145)
== END | disposition home or self-care (01) ==
LOC: MTLAB 16:43
PROVIDERS: PCP Family Medicine; Referring Provider Family Medicine; Visit Provider Family Medicine
DX: R09.89 Other specified symptoms and signs involving the circulatory and respiratory systems (principal); R06.02 Shortness of breath
CPT/HCPCS: 36415; 71046; 80053; 83880; 85025; 86141

== ENCOUNTER → 2023-03-02 | Outpatient (CLI) | payer MEDICARE, OTHER, SELFPAY ==
[2023-03-02 12:15] LABS: PSA,Total - Annual Screen 1.84 ng/mL (0.00-4.00)
== END | disposition home or self-care (01) ==
LOC: LAB 11:00
PROVIDERS: PCP Family Medicine; Referring Provider Nurse Practitioner; Visit Provider Nurse Practitioner
DX: Z12.5 Encounter for screening for malignant neoplasm of prostate (principal)
CPT/HCPCS: 36415; 84153; G0103

== ENCOUNTER → 2023-12-08 | Outpatient (CLI) | payer MEDICARE, OTHER, SELFPAY | END | disposition home or self-care (01) | LOC: SL 20:03 | PROVIDERS: PCP Family Medicine; Referring Provider Psychiatry & Neurology Neurology; Visit Provider Psychiatry & Neurology Neurology | DX: G47.33 Obstructive sleep apnea (adult) (pediatric) (principal) | CPT/HCPCS: 95811 ==

== ENCOUNTER → 2023-12-24 | Outpatient (CLI) | payer MEDICARE, OTHER, SELFPAY ==
--- NOTE | 2023-12-24 10:53 | RAD_ITS ---
HISTORY: supraclavicular fossa fullness. TECHNIQUE: XR Chest 2 Views. COMPARISON: 08/10/2022. FINDINGS: CARDIOMEDIASTINAL BORDERS: Cardiac silhouette again upper limits of normal in size. Mediastinal contour also unchanged with calcified right hilar and mediastinal lymph nodes. LUNGS: Radiographically clear. Chronic mild hyperinflation. PLEURA: No pleural effusion or pneumothorax seen. OSSEOUS STRUCTURES: Degenerative change. RAD/Chest PA and Lateral IMPRESSION: No acute cardiopulmonary process identified. Electronically Signed: Mary Brooks MD at 14:38 EDT ,
== END | disposition home or self-care (01) ==
LOC: MTRAD 10:50
PROVIDERS: PCP Family Medicine; Referring Provider Family Medicine; Visit Provider Family Medicine
DX: R22.2 Localized swelling, mass and lump, trunk (principal)
CPT/HCPCS: 71046

== ENCOUNTER → 2024-03-08 | Outpatient (CLI) | payer MEDICARE, OTHER, SELFPAY ==
--- NOTE | 2024-03-08 14:58 | ECHOD_ITS ---
Reason For Study: Bradycardia Procedure This was a 2D Doppler, Color Flow transthoracic echocardiogram. Myocardial strain analysis was performed in this exam to aid in the assessment of cardiac function. Exam performed in department. Left Ventricle Normal LV size. The left ventricular ejection fraction is 40 %. No regional wall motion abnormalities noted. Right Ventricle Normal RV size. Normal systolic function. Atria Normal left atrium. Normal right atrium. Mitral Valve Normal mitral valve. Mild (1+) eccentric mitral valve insufficiency. Tricuspid Valve Normal tricuspid valve. Mild (1+) tricuspid valve insufficiency. Pulmonary artery systolic pressure is 34 mmHg. Aortic Valve Normal aortic valve. Pulmonic Valve Normal pulmonic valve. Great Vessels Mildly dilated aortic root. The pulmonary artery is normal size. Inferior vena cava collapse with respiration. Pericardium/Pleural No pericardial effusion. MMode/2D Measurements & Calculations LVIDd: 5.6 cm IVSd: 0.93 cm Ao root diam: 4.0 cm LVIDs: 4.6 cm LVPWd: 0.92 cm RVDd: 4.1 cm FS: 17.2 % asc Aorta Diam: 4.1 cm LAV(MOD-bp): 52.9 ml LVAd ap4: 34.1 cm2 LAV(MOD-bp) Indexed: 28.1 ml/m2 LVLd ap4: 8.8 cm LAV(MOD-sp2): 52.0 ml EDV(MOD-sp4): 110.2 ml LAV(MOD-sp4): 48.9 ml EDV(sp4-el): 111.9 ml LVAs ap4: 25.3 cm2 LVLs ap4: 8.3 cm ESV(MOD-sp4): 69.9 ml ESV(sp4-el): 65.8 ml EF(MOD-sp4): 36.6 % EF(sp4-el): 41.2 % SV(MOD-sp4): 40.3 ml SV(sp4-el): 46.1 ml LA A4 area: 18.1 cm2 SI(MOD-sp4): 21.4 ml/m2 LA dimension(2D): 3.8 cm RA A4 area: 18.7 cm2 TAPSE: 2.4 cm Time Measurements MV dec time: 0.39 sec Doppler Measurements & Calculations MV E max benito: 40.1 cm/sec Lat Peak E' Benito: 4.4 cm/sec Med Peak E' Benito: 5.6 cm/sec MV A max benito: 64.5 cm/sec E/E' lat: 9.1 E/E' med: 7.2 MV E/A: 0.62 MV V2 max: 67.8 cm/sec MV P1/2t max benito: 48.2 cm/sec Ao V2 max: 151.4 cm/sec MV max P.8 mmHg MV P1/2t: 142.1 msec Ao max P.2 mmHg MV V2 mean: 36.1 cm/sec Ao V2 mean: 105.6 cm/sec MV mean P.60 mmHg MV dec slope: 99.3 cm/sec2 Ao mean P.1 mmHg MV V2 VTI: 24.3 cm MVA(P1/2t): 1.5 cm2 Ao V2 VTI: 35.0 cm AV (velocity ratio): 0.62 AI max benito: 435.6 cm/sec LV V1 max: 85.9 cm/sec MR max benito: 319.8 cm/sec AI max P.9 mmHg LV V1 max P.0 mmHg MR max P.9 mmHg LV V1 mean P.0 mmHg AI dec slope: 145.8 cm/sec2 LV V1 mean: 65.6 cm/sec AI P1/2t: 875.4 msec LV V1 VTI: 21.7 cm PA V2 max: 62.7 cm/sec TR max benito: 276.8 cm/sec TR max P.6 mmHg ECHO/Echo Complete Interpretation Summary The left ventricular ejection fraction is 40 %. Normal LV size. Mild (1+) eccentric mitral valve insufficiency. No regional wall motion abnormalities noted. Ordering Physician: DEBBIE OCHOA Referring Physician: Loki Oneal MD Performed By: Collin Garrett RCS
== END | disposition home or self-care (01) ==
PROVIDERS: PCP Family Medicine
DX: R94.31 Abnormal electrocardiogram [ECG] [EKG] (principal); R00.1 Bradycardia, unspecified
CPT/HCPCS: 93306

== ENCOUNTER → 2024-03-13 | Outpatient (CLI) | payer MEDICARE, OTHER, SELFPAY ==
[2024-03-13 15:59] LABS: PSA,Total - Annual Screen 1.26 ng/mL (0.00-4.00)
== END | disposition home or self-care (01) ==
LOC: MTLAB 11:03
PROVIDERS: PCP Family Medicine; Referring Provider Nurse Practitioner; Visit Provider Nurse Practitioner
DX: Z12.5 Encounter for screening for malignant neoplasm of prostate (principal)
CPT/HCPCS: 36415; 84153; G0103

== ENCOUNTER → 2024-08-30 | Outpatient (CLI) | payer MEDICARE, OTHER, SELFPAY ==
[2024-08-30 12:56] LABS: Absolute Lymphocyte Count 1.15 X10^3/uL (0.83-4.51); Absolute Neutrophil Count 5.3 X10^3/uL (2.0-7.7); Basophil# 0.06 X10^3/uL; Basophil% 0.8 % (0-1); Eosinophil# 0.35 X10^3/uL; Eosinophils% 4.5 % (0-5); Hemoglobin 14.5 g/dL (13.0-16.5); Lymphocyte # 1.15 X10^3/ul (0.83-4.51); Lymphocyte % 14.9 % (19-41); Mean Platelet Vol. 11.8 fl (6.2-12.0); Monocyte# 0.75 X10^3/uL; Monocyte% 9.7 % (0-10); NRBC Flagged by Analyzer 0 % (0-5); Neutrophil # 5.33 X10^3/uL (2.7-7.7); Neutrophil % 69.1 % (47-70); Platelet Count 197 K/mm3 (150-450); RBC Distribution Width CV 13.3 % (11.6-14.6); RBC Distribution Width SD 46.2 fl (35.1-43.9); Red Blood Count 4.68 M/mm3 (4.6-6.2); White Blood Count 7.7 K/mm3 (4.4-11.0)
[2024-08-30 13:16] LABS: Cholesterol 176 mg/dL (<=200); High Density Lipoprotein 57 mg/dL; Low Density Lipoprotein Calc. 101 mg/dL; Triglycerides 90 mg/dL; Very Low Density Lipoprotein 18 mg/dL (5-40); cholesterol:hdl ratio screen 3.11
[2024-08-30 13:21] LABS: ALB/GLOB Ratio 1.6 RATIO (0.9-2.4); AST(SGOT) 25 U/L (<=37); Alanine Aminotransfer ALT/SGPT < 5 U/L (<=46); Albumin, Serum 4.5 g/dL (3.4-4.8); Alkaline Phosphatase 87 U/L (40-129); Anion Gap 11 (5-15); BUN 26 mg/dL (4-19); BUN/Creat Ratio 18.6 RATIO (10-20); Calcium,Total 9.8 mg/dL (7.6-11.0); Carbon Dioxide 25.6 mmol/L (21.0-32.0); Chloride 105 mmol/L (98-108); Creatinine, Serum 1.38 mg/dL (0.70-1.20); EST Glomerular Filtration Rate 52 (>60); Globulin 2.8 g/dL (2.2-4.2); Glucose 92 mg/dL (70-99); Potassium 4.5 mmol/L (3.3-5.1); Protein, Total 7.3 g/dL (5.9-8.4); Sodium Level 141 mmol/L (133-145); Total Bilirubin 0.77 mg/dL (0.00-1.30)
[2024-08-30 13:27] LABS: Microalbumin,Random Urine 92.2 mg/L (NO RANGE EST.); Microalbumin:Creatinine Ratio 973.6 mg/g CRE
== END | disposition home or self-care (01) ==
LOC: MTLAB 09:11
PROVIDERS: PCP Family Medicine; Referring Provider Family Medicine; Visit Provider Family Medicine
DX: J45.30 Mild persistent asthma, uncomplicated (principal); I10 Essential (primary) hypertension
CPT/HCPCS: 36415; 80053; 80061; 82043; 82570; 85025